=== PATIENT | female | born 1995 | race Hispanic/Latino ===

== ENCOUNTER 2019-06-21 15:35 | Emergency (ER) | payer OTHER ==
--- NOTE | 2019-06-21 16:26 | Emergency Department Report ---
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 Due to findings the following was ordered: ED Medical Decision Making - Medical Decision Making HIV and hepatitis panel ella No acute distress ED Disposition for MSE Clinical Impression: History of exposure to blood or body fluid Disposition: DC-01 TO HOME OR SELFCARE Is pt being admited?: No Does the pt Need Aspirin: No Condition: Stable Instructions: Postexposure Prophylaxis (ED) Referrals: PRIMARY CARE, [Primary Care Provider] - 3-5 Days Time of Disposition: 16:28
[2019-06-21 16:27] VITALS: BP 119/93
[2019-06-21 17:43] LABS: Hepatitis B Surface Antigen Non-Reactive (Negative); Hepatitis C Virus Antibody Non-Reactive (NonReactive)
== END 2019-06-21 16:30 | disposition home or self-care (01) ==
LOC: LAB 15:35 → ED 15:35 → EDSTATUS 16:13 → ED 16:30
DX: Z77.21 Contact with and (suspected) exposure to potentially hazardous body fluids (principal)
CPT/HCPCS: 36415; 80074; 87806

== ENCOUNTER 2021-07-10 15:43 | Emergency (ER) | payer BC, OTHER ==
--- NOTE | 2021-07-10 17:04 | Emergency Department Report ---
HPI - General Chief Complaint: Syncope Time Seen by Provider: 07/10/21 16:46 - HPI HPI: Room 39 The patient is a 25-year-old female present with a chief complaint of syncope. 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 Patient states she felt drunk and off balance and the partner had to hold her. The patient states she went to lean over a rail then lost consciousness with her next memory being her awakening with her coworkers around her. Patient denied ever having chest pain, shortness of breath or palpitations at any time. The patient states her chest "felt empty" but there was never any pain. Patient denies pleurisy. Patient denies any recent flights or long car trips. When asked how she is feeling down the patient replies "fine." Patient denies any preceding nausea vomiting or diarrhea. Patient is currently on her cycle and states this is the normal time. The patient states she has had episodes of chest pain for many years but has never been given a specific diagnosis ED Past Medical Hx - Past Medical History Previous Medical History?: Yes Hx Headaches / Migraines: Yes Additional medical history: Hypothyroidism - Surgical History Past Surgical History?: No - Family History Family history: no significant - Social History Smoking Status: Never Smoker Substance Use Type: None (Denies illicit drug use), Alcohol (Rarely) ED Review of Systems ROS: Stated complaint: SYNCOPAL EPISODE Other details as noted in HPI Constitutional: denies: fever Eyes: vision change ENT: denies: throat pain Respiratory: denies: shortness of breath Cardiovascular: denies: chest pain, palpitations Endocrine: no symptoms reported Gastrointestinal: denies: abdominal pain, nausea, vomiting, diarrhea Genitourinary: denies: abnormal menses Musculoskeletal: denies: back pain Neurological: vertigo. denies: headache Physical Exam - Physical Exam Physical Exam: GENERAL: The patient is well-developed well-nourished female lying on stretcher not appearing to be in acute distress. [] HEENT: Normocephalic. Atraumatic. Extraocular motions are intact. No nystagmus. Patient has moist mucous membranes. NECK: Supple. No meningitic signs are noted. There is no adenopathy noted. CHEST/LUNGS: Clear to auscultation. There is no respiratory distress noted. HEART/CARDIOVASCULAR: Regular. There is no tachycardia. There is no gallop rub or murmur. ABDOMEN: Abdomen is soft, nontender. Patient has normal bowel sounds. There is no abdominal distention. SKIN: There is no rash. There is no edema. There is no diaphoresis. NEURO: The patient is awake, alert, and oriented. The patient is cooperative. The patient has no focal neurologic deficits. The patient has normal speech. Cranial nerves II through XII grossly intact. No dysmetria noted with [id number] bilaterally. GCS 15 MUSCULOSKELETAL: There is no evidence of acute injury. ED Medical Decision Making - Lab Data Result diagrams: 07/10/21 17:41 07/10/21 17:41 Laboratory Tests 07/10/21 07/10/21 07/10/21 17:41 17:41 17:41 WBC 8.0 RBC 4.18 Hgb 13.3 Hct 37.5 MCV 90 MCH 32 MCHC 36 H RDW 12.3 L Plt Count 328 Lymph % (Auto) 27.2 [place] % (Auto) 9.1 H Eos % (Auto) 0.5 Baso % (Auto) 0.4 Lymph # (Auto) 2.2 [place] # (Auto) 0.7 Eos # (Auto) 0.0 Baso # (Auto) 0.0 Seg Neutrophils % 62.8 Seg Neutrophils # 5.0 D-Dimer < 135.00 Sodium 137 Potassium 3.8 Chloride 100.4 Carbon Dioxide 24 Anion Gap 16 BUN 16 Creatinine 0.6 Estimated GFR > 60 BUN/Creatinine Ratio 27 Glucose 96 Calcium 9.6 Total Creatine Kinase 45 CK-MB (CK-2) < 1.0 CK-MB (CK-2) Rel Index 2.2 Troponin T < 0.010 TSH Free T4 HCG, Qual Urine Color Urine Turbidity Urine pH Ur Specific [place] Urine Protein Urine Glucose (UA) Urine Ketones Urine Blood Urine Nitrite Urine Bilirubin Urine Urobilinogen Ur Leukocyte Esterase Urine WBC (Auto) Urine RBC (Auto) U Epithel Cells (Auto) Urine Mucus 07/10/21 07/10/21 07/10/21 17:41 17:41 Unknown WBC RBC Hgb Hct MCV MCH MCHC RDW Plt Count Lymph % (Auto) [place] % (Auto) Eos % (Auto) Baso % (Auto) Lymph # (Auto) [place] # (Auto) Eos # (Auto) Baso # (Auto) Seg Neutrophils % Seg Neutrophils # D-Dimer Sodium Potassium Chloride Carbon Dioxide Anion Gap BUN Creatinine Estimated GFR BUN/Creatinine Ratio Glucose Calcium Total Creatine Kinase CK-MB (CK-2) CK-MB (CK-2) Rel Index Troponin T TSH 0.642 Free T4 1.10 HCG, Qual Negative Urine Color Yellow Urine Turbidity Clear Urine pH 6.0 Ur Specific [place] 1.018 Urine Protein <15 mg/dl Urine Glucose (UA) Neg Urine Ketones Neg Urine Blood Neg Urine Nitrite Neg Urine Bilirubin Neg Urine Urobilinogen < 2.0 Ur Leukocyte Esterase Neg Urine WBC (Auto) 1.0 Urine RBC (Auto) 1.0 U Epithel Cells (Auto) 2.0 Urine Mucus Few - EKG Data -: EKG Interpreted by Me EKG shows normal: sinus rhythm, axis Rate: normal - EKG Data When compared to previous EKG there are: previous EKG unavailable Interpretation: normal EKG - Radiology Data Radiology results: report reviewed (Chest x-ray, CT head), image reviewed (Chest x-ray, CT head) interpreted by me: Chest x-ray-no definite focal infiltrates, no pneumothorax [facility] [address] [place] [address] XRay Report Signed Patient: RUSH MCDONALD MR#: [id number] : 1995 Acct:[id number] Age/Sex: 25 / F ADM Date: 07/10/21 Loc: ED Attending Dr: Ordering Physician: SONIA MORGAN MD Date of Service: 07/10/21 Procedure(s): XR chest 1V ap Accession Number(s): [id number] cc: SONIA MORGAN MD Fluoro Time In Minutes: CHEST 1 VIEW INDICATION / CLINICAL INFORMATION: syncopal episode, hx pericarditis. FINDINGS: SUPPORT DEVICES: None. HEART / MEDIASTINUM: No significant abnormality. LUNGS / PLEURA: No significant pulmonary or pleural abnormality. No pneumothorax. ADDITIONAL FINDINGS: No significant additional findings. IMPRESSION: 1. No acute findings. Signer Name: Khang Cooper MD Signed: 07/10/2021 6:57 PM Workstation Name: [id number] Transcribed By: BC Dictated By: Khang Cooper MD Electronically Authenticated By: Khang Cooper MD Signed Date/Time: 07/10/211856 DD/ 56 TD/TT: Print Cancel [facility] [address] [id number] Cat Scan Report Signed Patient: RUSH MCDONALD MR#: [id number] : 1995 Acct:[id number] Age/Sex: 25 / F ADM Date: 07/10/21 Loc: ED Attending Dr: Ordering Physician: SONAI MORGAN MD Date of Service: 07/10/21 Procedure(s): CT head/brain wo con Accession Number(s): [id number] cc: SONIA MORGAN MD . CT head/brain wo con INDICATION / CLINICAL INFORMATION: 25 years Female; Syncope. TECHNIQUE: Routine CT head without contrast. All CT scans at this location are performed using CT dose reduction for ALARA by means of automated exposure control. COMPARISON: None. FINDINGS: BRAIN / INTRACRANIAL CONTENTS: No acute hemorrhage, mass effect, midline shift, hydrocephalus, or acute, large territorial infarct. No signs of significant atrophy or chronic infarct. No significant white matter abnormality seen. CRANIOCERVICAL JUNCTION: No significant abnormality. ORBITS: No significant abnormality of visualized orbits. SINUSES / MASTOIDS: Visualized paranasal sinuses and mastoid air cells are essentially clear. ADDITIONAL FINDINGS: None. IMPRESSION: 1. No focal mass, hemorrhage, hydrocephalus, or acute, large territorial infarct. Signer Name: Ronnie Lopez MD, III Signed: 07/10/2021 5:50 PM Workstation Name: [id number] Transcribed By: HR Dictated By: Ronnie Lopez MD Electronically Authenticated By: Ronnie Lopez MD Signed Date/Time: 07/10/211749 DD/ 48 TD/TT: Print Cancel - Differential Diagnosis Anxiety, orthostasis, PE, intracranial mass, hypothyroidism, Critical care attestation.: If time is entered above; I have spent that time in minutes in the direct care of this critically ill patient, excluding procedure time. ED Disposition Clinical Impression: Syncope Disposition: 01 HOME / SELF CARE / HOMELESS Is pt being admited?: No Does the pt Need Aspirin: No Condition: Stable Instructions: Syncope (ED), Syncope, [id number] Additional Instructions: Return to the emergency department should you develop worsening symptoms, inability to tolerate food or liquids, high fever or any other concerns Referrals: PRIMARY CAREMD [Primary Care Provider] - 3-5 Days LORENZO CARLTON MD [Staff Physician] - 3-5 Days (Dr. Carlton is a dispatch coordinator. Please follow-up with her for further evaluation) Time of Disposition: 20:38
--- NOTE | 2021-07-10 17:55 | Cat Scan Report ---
. CT head/brain wo con INDICATION / CLINICAL INFORMATION: 25 years Female; Syncope. TECHNIQUE: Routine CT head without contrast. All CT scans at this location are performed using CT dos e reduction for ALARA by means of automated exposure control. COMPARISON: None. FINDINGS: BRAIN / INTRACRANIAL CONTENTS: No acute hemorrhage, mass effect, midline shift, hydrocephalus, or acu te, large territorial infarct. No signs of significant atrophy or chronic infarct. No significant whi te matter abnormality seen. CRANIOCERVICAL JUNCTION: No significant abnormality. ORBITS: No significant abnormality of visualized orbits. SINUSES / MASTOIDS: Visualized paranasal sinuses and mastoid air cells are essentially clear. ADDITIONAL FINDINGS: None. IMPRESSION: 1. No focal mass, hemorrhage, hydrocephalus, or acute, large territorial infarct. Signer Name: Ronnie Lopez MD, III Signed: 07/10/2021 5:50 PM Workstation Name: [id number]
[2021-07-10 18:21] LABS: Basophils % (Auto) 0.4 % (0.0-1.8); Eosinophils % (Auto) 0.5 % (0.0-4.3); Hematocrit 37.5 % (30.3-42.9); Hemoglobin 13.3 gm/dl (10.1-14.3); Lymphocytes # (Auto) 2.2 K/mm3 (1.2-5.4); Lymphocytes % (Auto) 27.2 % (13.4-35.0); Mean Corpuscular HGB Conc 36 % (30-34); Mean Corpuscular Volume 90 fl (79-97); Monocytes # (Auto) 0.7 K/mm3 (0.0-0.8); Monocytes % (Auto) 9.1 % (0.0-7.3); Platelet Count 328 K/mm3 (140-440); Red Blood Count 4.18 M/mm3 (3.65-5.03); Red Cell Distribution Width 12.3 % (13.2-15.2)
[2021-07-10 18:42] LABS: Free T4 (Free Thyroxine) 1.1 ng/dL (0.76-1.46)
[2021-07-10 18:47] LABS: Creatine Kinase MB < 1.0 ng/mL (0.0-4.0)
[2021-07-10 18:50] VITALS: BP 121/84
[2021-07-10 18:51] LABS: Blood Urea Nitrogen 16 mg/dL (7-17); Calcium 9.6 mg/dL (8.4-10.2); Hemolysis Index 11
[2021-07-10 18:54] LABS: BUN/Creatinine Ratio 27
--- NOTE | 2021-07-10 19:01 | XRay Report ---
CHEST 1 VIEW INDICATION / CLINICAL INFORMATION: syncopal episode, hx pericarditis. FINDINGS: SUPPORT DEVICES: None. HEART / MEDIASTINUM: No significant abnormality. LUNGS / PLEURA: No significant pulmonary or pleural abnormality. No pneumothorax. ADDITIONAL FINDINGS: No significant additional findings. IMPRESSION: 1. No acute findings. Signer Name: Khang Cooper MD Signed: 07/10/2021 6:57 PM Workstation Name: [id number]
[2021-07-10 20:03] LABS: Bilirubin,Urine NEG (Negative); Blood,Urine NEG (Negative); Color,Urine Yellow (Yellow); Mucus,Urine FEW /HPF; Protein,Urine <15 mg/dL mg/dL (Negative); Urobilinogen,Urine < 2.0 mg/dL (<2.0)
--- NOTE | 2021-07-17 14:03 | Electrocardiograph Report ---
[facility] Test Date: 2021-07-10 Test Time: 17:04:50 Pat Name: RUSH MCDONALD Department: Room: Gender: F Manager Export: BHUMI : 1995 Requested By: SONIA MORGAN Order Number: [id number] Reading MD: Yoli Pierson Measurements Intervals [place] Rate: 74 P: 60 MN: 177 QRS: 71 QRSD: 90 T: 47 QT: 359 QTc: 397 Interpretive Statements Sinus rhythm No previous ECG available for comparison Electronically Signed On 07-17-2021 14:02:28 EDT by Yoli Pierson
== END 2021-07-10 20:42 | disposition home or self-care (01) ==
LOC: ED 15:43
DX: R55 Syncope and collapse (principal); E03.9 Hypothyroidism, unspecified; Z88.1 Allergy status to other antibiotic agents; Z88.8 Allergy status to other drugs, medicaments and biological substances; Z79.899 Other long term (current) drug therapy
CPT/HCPCS: 36415; 70450; 71045; 80048; 81001; 82550; 82553; 84439; 84443; 84484; 84703; 85025; 85379; 93005; 99285